=== PATIENT | female | born 1975 | race African-American/Black ===

== ENCOUNTER 2019-07-04 22:12 | Observation (INO) ==
[2019-07-04] MEDS ORDERED: NITROGLYCERIN SL 0.4 MG TABLET SL PRN (22:39)
[2019-07-04] MEDS ORDERED: ASPIRIN 325 MG TABLET PO STA (22:39)
[2019-07-04 22:56] LABS: Basophils % 0.4 % (0.0-0.8); Eosinophils % 0.8 % (0.00-10.9); Hematocrit 39.8 VOL% (35.7-47.0); Hemoglobin 12.3 GM/DL (12.0-16.0); Immature Granulocytes % 0.8 %; Immature Granulocytes Absolute 0.04 #; Lymphocytes # 1.4 10*3/uL (1.4-4.0); Lymphocytes % 27.3 % (21.3-54.2); Mean Corpuscular HGB Conc 30.9 GM/DL (32-36); Mean Corpuscular Volume 83.8 FL (87-102); Mean Platelet Volume 11.3 FL (9.6-12.0); Monocytes % 7.2 % (1.7-12.7); Neutrophils % 63.5 % (38.7-73.9); Platelet Count 152 T/CUMM (130-400); Red Blood Count 4.75 MC/CUMM (3.8-5.5); Red Cell Distribution Width 16.9 % (9.3-17.3); White Blood Count 5.2 T/CUMM (4-12)
[2019-07-04 23:03] LABS: INR 0.9; PT Patient Result 10.3 SECS (9.6-12.2); Partial Thromboplastin Time < 21.0 SECS (20.8-36.0)
[2019-07-04 23:08] LABS: Alanine Aminotransferase 18 U/L (13-56); Albumin 3.7 G/DL (3.4-5.0); Alkaline Phosphatase 53 U/L (45-117); Aspartate Amino Transferase 19 U/L (0-37); Bilirubin,Total < 0.39 MG/DL (0.2-1.0); Blood Urea Nitrogen 9 MG/DL (7-18); Calcium 8.3 MG/DL (8.5-10.1); Estimated Glom Filtration Rate 95 ML/MIN; Glucose 101 MG/DL (74-106); Osmolality,Calculated 275.5 MOS/KG (273-304); Total Protein 8.3 G/DL (6.4-8.3)
[2019-07-04] MEDS ORDERED: ENOXAPARIN 30 MG/0.3 ML SYRINGE SUBCUT STA (23:34)
[2019-07-05] MEDS ORDERED: ENOXAPARIN 100 MG/ML SYRINGE SUBCUT ONE (00:17)
[2019-07-05] MEDS ORDERED: MAGNESIUM SULF RIDER 4 GM in PREMIX 1 EACH IV PRN (03:15)
[2019-07-05] MEDS ORDERED: ACETAMINOPHEN 325 MG TABLET PO PRN (03:15)
[2019-07-05] MEDS ORDERED: DOCUSATE SODIUM 100 MG CAPSULE PO PRN (03:15)
[2019-07-05] MEDS ORDERED: MORPHINE 4 MG/1 ML VIAL IV PRN (03:15)
[2019-07-05] MEDS ORDERED: MAGNESIUM SULF RIDER 2 GM in PREMIX 1 EACH IV PRN (03:15)
[2019-07-05] MEDS ORDERED: hydrALAZINE 20 MG/1 ML VIAL IV PRN (03:15)
[2019-07-05] MEDS ORDERED: ONDANSETRON 4 MG/2 ML VIAL IV PRN (03:15)
[2019-07-05 03:31] LABS: Apearance,Urine CLEAR (Clear); Bilirubin,Urine Negative (Negative); Blood, Urine Negative (Negative); Glucose,Urine (UA) Negative (Negative); Ketones,Urine Negative (Negative); Mucus,Urine Occasional /LPF (Occasional); Nitrite,Urine Negative (Negative); Protein,Urine Negative; RBC,Urine 1 /HPF (0-4); Squamous Epithelial Cell,Urine Occasional /HPF (0-10); Urine Color Yellow (Yellow); Urine Specific Gravity 1.059 (1.001-1.035); Urine Urobilinogen < 2.0 EU/DL (0.2-1.0)
[2019-07-05 05:03] LABS: Barbiturates Screen,Urine Negative (Negative); Benzodiazepines Screen,Urine Negative (Negative); Cannabinoid Screen,Urine Negative (Negative); Opiate Screen,Urine Negative (Negative); Phencyclidine Screen,Urine Negative (Negative)
[2019-07-05 08:32] LABS: Basophils % 0.3 % (0.0-0.8); Eosinophils # 0.1 10*3/uL (0.0-0.87); Eosinophils % 1.2 % (0.00-10.9); Hematocrit 36.2 VOL% (35.7-47.0); Hemoglobin 11.4 GM/DL (12.0-16.0); Immature Granulocytes % 0.5 %; Immature Granulocytes Absolute 0.03 #; Lymphocytes # 1.4 10*3/uL (1.4-4.0); Lymphocytes % 23.2 % (21.3-54.2); Mean Corpuscular HGB Conc 31.5 GM/DL (32-36); Mean Corpuscular Volume 81.5 FL (87-102); Mean Platelet Volume 11.9 FL (9.6-12.0); Monocytes % 7.5 % (1.7-12.7); Neutrophils % 67.3 % (38.7-73.9); Platelet Count 150 T/CUMM (130-400); Red Blood Count 4.44 MC/CUMM (3.8-5.5); Red Cell Distribution Width 16.9 % (9.3-17.3); White Blood Count 5.9 T/CUMM (4-12)
[2019-07-05] MEDS: LISINOPRIL/HCTZ 20-25 MG TABLET PO SCH (08:37)
[2019-07-05 08:48] LABS: Calcium 8.5 MG/DL (8.5-10.1); Osmolality,Calculated 271.8 MOS/KG (273-304)
[2019-07-05] MEDS ORDERED: WARFARIN 7.5 MG TABLET PO ONE (10:00)
[2019-07-05] MEDS: ENOXAPARIN 120 MG/0.8 ML SYRINGE SUBCUT SCH ×2 (10:06→22:00)
[2019-07-06 04:03] LABS: Basophils % 0.6 % (0.0-0.8); Eosinophils # 0.1 10*3/uL (0.0-0.87); Eosinophils % 3.3 % (0.00-10.9); Hematocrit 35.6 VOL% (35.7-47.0); Immature Granulocytes % 0.6 %; Immature Granulocytes Absolute 0.02 #; Lymphocytes # 1.5 10*3/uL (1.4-4.0); Lymphocytes % 44.1 % (21.3-54.2); Mean Corpuscular HGB Conc 30.9 GM/DL (32-36); Mean Corpuscular Volume 83.4 FL (87-102); Mean Platelet Volume 10.9 FL (9.6-12.0); Monocytes % 8.8 % (1.7-12.7); Neutrophils % 42.6 % (38.7-73.9); Platelet Count 123 T/CUMM (130-400); Red Blood Count 4.27 MC/CUMM (3.8-5.5); Red Cell Distribution Width 16.8 % (9.3-17.3); White Blood Count 3.3 T/CUMM (4-12)
[2019-07-06 04:21] LABS: Osmolality,Calculated 275.5 MOS/KG (273-304)
[2019-07-06] MEDS: LISINOPRIL/HCTZ 20-25 MG TABLET PO SCH (08:14)
[2019-07-06] MEDS: POTASSIUM CHLORIDE 20 MEQ TABLET PO PRN ×3 (09:24→13:38)
[2019-07-06] MEDS: ENOXAPARIN 120 MG/0.8 ML SYRINGE SUBCUT SCH ×2 (11:26→22:00)
[2019-07-06] MEDS ORDERED: WARFARIN 5 MG TABLET PO SCH (18:00)
[2019-07-07 04:18] LABS: Basophils % 0.6 % (0.0-0.8); Eosinophils # 0.1 10*3/uL (0.0-0.87); Eosinophils % 3.5 % (0.00-10.9); Hemoglobin 11.5 GM/DL (12.0-16.0); Immature Granulocytes % 0.6 %; Immature Granulocytes Absolute 0.02 #; Lymphocytes # 1.3 10*3/uL (1.4-4.0); Lymphocytes % 37.2 % (21.3-54.2); Mean Corpuscular HGB Conc 31.1 GM/DL (32-36); Mean Corpuscular Volume 82.8 FL (87-102); Mean Platelet Volume 11.8 FL (9.6-12.0); Monocytes % 10.7 % (1.7-12.7); Neutrophils % 47.4 % (38.7-73.9); Platelet Count 133 T/CUMM (130-400); Red Blood Count 4.47 MC/CUMM (3.8-5.5); Red Cell Distribution Width 16.6 % (9.3-17.3); White Blood Count 3.5 T/CUMM (4-12)
[2019-07-07 04:32] LABS: PT Patient Result 10.5 SECS (9.6-12.2); Partial Thromboplastin Time 29.4 SECS (20.8-36.0)
[2019-07-07 04:37] LABS: Calcium 8.7 MG/DL (8.5-10.1); Osmolality,Calculated 276.5 MOS/KG (273-304)
[2019-07-07] MEDS: POTASSIUM CHLORIDE 20 MEQ TABLET PO PRN (09:16)
[2019-07-07] MEDS: LISINOPRIL/HCTZ 20-25 MG TABLET PO SCH (09:16)
[2019-07-07] MEDS: ENOXAPARIN 120 MG/0.8 ML SYRINGE SUBCUT SCH (11:53)
[2019-07-07 16:01] VITALS: BP 130/93
== END 2019-07-07 16:40 | disposition home or self-care (01) ==
LOC: N.ED 22:12 → N.EDINP 22:12 → EDBD 22:12 → SUATTDRO 07-05 01:28 → N.TELES 07-05 02:34
PROVIDERS: ADMIT Family Medicine; ATTEND Internal Medicine

== ENCOUNTER 2020-02-25 21:45 | Observation (INO) ==
[2020-02-25] MEDS ORDERED: NITROGLYCERIN 2% OINT 1 INCH/GM PACK TOP STA (22:39)
[2020-02-25] MEDS ORDERED: MORPHINE 4 MG/1 ML VIAL IV STA (22:39)
[2020-02-25] MEDS ORDERED: ONDANSETRON 4 MG/2 ML VIAL IV STA (22:39)
[2020-02-25] MEDS ORDERED: ASPIRIN 325 MG TABLET PO STA (22:39)
[2020-02-25 22:44] LABS: Basophils % 0.5 % (0.0-0.8); Eosinophils # 0.1 10*3/uL (0.0-0.87); Eosinophils % 1.1 % (0.00-10.9); Hematocrit 29.1 VOL% (35.7-47.0); Hemoglobin 8.8 GM/DL (12.0-16.0); Immature Granulocytes % 0.5 %; Immature Granulocytes Absolute 0.02 #; Lymphocytes # 1.2 10*3/uL (1.4-4.0); Lymphocytes % 26.1 % (21.3-54.2); Mean Corpuscular HGB Conc 30.2 GM/DL (32-36); Mean Platelet Volume 10.5 FL (9.6-12.0); Monocytes % 11.3 % (1.7-12.7); Neutrophils % 60.5 % (38.7-73.9); Platelet Count 194 T/CUMM (130-400); Red Blood Count 3.78 MC/CUMM (3.8-5.5); Red Cell Distribution Width 18.9 % (9.3-17.3); White Blood Count 4.4 T/CUMM (4-12)
[2020-02-25 22:52] LABS: PT Patient Result 10.5 SECS (9.8-11.9)
[2020-02-25 23:06] LABS: Alanine Aminotransferase 13 U/L (13-56); Albumin 3.6 G/DL (3.4-5.0); Alkaline Phosphatase 78 U/L (45-117); Aspartate Amino Transferase 18 U/L (0-37); Bilirubin,Total < 0.39 MG/DL (0.2-1.0); Blood Urea Nitrogen 10 MG/DL (7-18); Calcium 8.9 MG/DL (8.5-10.1); Estimated Glom Filtration Rate 126 ML/MIN; Glucose 104 MG/DL (74-106); Osmolality,Calculated 277.4 MOS/KG (273-304); Total Protein 8.4 G/DL (6.4-8.3)
[2020-02-26] MEDS ORDERED: PIPERACILLIN/TAZOBACTAM 3,375 MG in SODIUM CHLORIDE 0.9% 100 ML IV STA (00:35)
[2020-02-26 02:34] VITALS: BP 148/64
[2020-02-26] MEDS ORDERED: APIXABAN 5 MG TABLET PO SCH (09:00)
== END 2020-02-26 03:55 | disposition home or self-care (01) ==
LOC: N.EDINP 21:45 → N.ED 21:45 → N.EDINP 02-26 03:54
PROVIDERS: ADMIT Family Medicine; ATTEND Family Medicine

== ENCOUNTER 2021-06-13 09:31 | Inpatient (IN) ==
[2021-06-13] MEDS ORDERED: MORPHINE 2 MG/1 ML SYRINGE IV STA (11:37)
[2021-06-13] MEDS ORDERED: ONDANSETRON 4 MG/2 ML VIAL IV STA (11:38)
[2021-06-13 12:05] LABS: PT Patient Result 11.7 SECS (10.5-12.0); Partial Thromboplastin Time 25.2 SECS (23.8-32.1)
[2021-06-13 12:07] LABS: Basophils % 0.4 % (0.0-0.8); Eosinophils # 0.1 10*3/uL (0.0-0.87); Eosinophils % 0.7 % (0.00-10.9); Hematocrit 27.7 VOL% (35.7-47.0); Hemoglobin 7.3 GM/DL (12.0-16.0); Immature Granulocytes % 2.5 %; Immature Granulocytes Absolute 0.21 #; Lymphocytes # 0.8 10*3/uL (1.4-4.0); Lymphocytes % 9.8 % (21.3-54.2); Mean Corpuscular HGB Conc 26.4 GM/DL (32-36); Mean Corpuscular Volume 67.4 FL (87-102); Monocytes % 10.5 % (1.7-12.7); NRBC # 0.04 10*3/uL; Neutrophils % 76.1 % (38.7-73.9); Platelet Count 233 T/CUMM (130-400); Red Blood Count 4.11 MC/CUMM (3.8-5.5); Red Cell Distribution Width 23.1 % (9.3-17.3); White Blood Count 8.4 T/CUMM (4-12)
[2021-06-13 12:25] LABS: Albumin 2.9 G/DL (3.4-5.0); Bilirubin,Total 0.4 MG/DL (0.20-1.00); Calcium 8.9 MG/DL (8.5-10.1); Osmolality,Calculated 266.2 MOS/KG (273-304); Potassium 3.7 MMOL/L (3.5-5.1); Total Protein 8.9 G/DL (6.4-8.2)
[2021-06-13] MEDS ORDERED: hydrALAZINE 20 MG/1 ML VIAL IV PRN (16:03)
[2021-06-13] MEDS ORDERED: GLUCAGON 1 MG VIAL IM PRN (16:03)
[2021-06-13] MEDS ORDERED: ONDANSETRON 4 MG/2 ML VIAL IV PRN (16:03)
[2021-06-13] MEDS ORDERED: DEXTROSE 10% 25 GM/250 ML BAG IV PRN (16:03)
[2021-06-13] MEDS: INSULIN LISPRO 100 UNIT/ML SUBCUT SCH ×2 (16:53→22:24)
[2021-06-13] MEDS: HEPARIN DRIP 25,000 UNITS/500 ML PREMIX IV SCH (17:09)
[2021-06-13] MEDS ORDERED: INFLUENZA VIRUS VACCINE 0.5 ML SYRINGE IM ONE (22:28)
[2021-06-13] MEDS: ACETAMINOPHEN 325 MG TABLET PO PRN (22:52)
[2021-06-13 23:32] LABS: Basophils % 0.2 % (0.0-0.8); Eosinophils % 0.3 % (0.00-10.9); Immature Granulocytes % 2.6 %; Immature Granulocytes Absolute 0.31 #; Lymphocytes # 2.2 10*3/uL (1.4-4.0); Mean Corpuscular HGB Conc 25.6 GM/DL (32-36); Mean Corpuscular Volume 68.9 FL (87-102); Monocytes % 11.3 % (1.7-12.7); NRBC # 0.07 10*3/uL; Neutrophils % 66.6 % (38.7-73.9); Platelet Count 261 T/CUMM (130-400); Red Blood Count 3.51 MC/CUMM (3.8-5.5); Red Cell Distribution Width 23.2 % (9.3-17.3); White Blood Count 11.8 T/CUMM (4-12)
[2021-06-13 23:53] LABS: Hematocrit 24.2 VOL% (35.7-47.0); Hemoglobin 6.2 GM/DL (12.0-16.0)
[2021-06-13 23:57] LABS: Folate 15.96 NG/ML (5.38-24.0); Vitamin B12 232 PG/ML (211-911)
[2021-06-14 00:02] LABS: Lymphocytes 13 % (20-55); Platelet Estimate Adequate; Segmented Neutrophils 79 % (50-85); Total Cells Counted 100
[2021-06-14 00:03] LABS: Hypochromia 1+; Microcytosis 1+; Polychromasia 1+; Stomatocytes 1+
[2021-06-14 00:04] LABS: Target Cells 1+
[2021-06-14] MEDS ORDERED: SODIUM CHLORIDE 0.9% 1,000 ML IV PRN ×3 (00:16→09:25)
[2021-06-14 01:11] LABS: Sedimentation Rate-Westergren 88 MM/HR (0-20)
[2021-06-14] MEDS: cefTRIAXone 1,000 MG in SODIUM CHLORIDE 0.9% 100 ML IV SCH ×2 (01:16→23:55)
[2021-06-14] MEDS: AZITHROMYCIN INJ 500 MG in SODIUM CHLORIDE 0.9% 250 ML IV SCH (01:49)
[2021-06-14] MEDS: ACETAMINOPHEN 325 MG TABLET PO PRN ×4 (05:22→22:27)
[2021-06-14] MEDS: HEPARIN DRIP 25,000 UNITS/500 ML PREMIX IV SCH ×2 (05:26→15:30)
[2021-06-14] MEDS: INSULIN LISPRO 100 UNIT/ML SUBCUT SCH ×4 (07:30→21:34)
[2021-06-14 08:21] LABS: Albumin 2.5 G/DL (3.4-5.0); Bilirubin,Total 0.7 MG/DL (0.20-1.00); Calcium 8.6 MG/DL (8.5-10.1); Osmolality,Calculated 267.2 MOS/KG (273-304); Potassium 3.4 MMOL/L (3.5-5.1); Total Protein 7.9 G/DL (6.4-8.2)
[2021-06-14 08:35] LABS: Random Urine Protein (Bench) 50 MG/DL (<11.9); Total Protein (Chem) 8.9 G/DL (6.4-8.3)
[2021-06-14 08:44] LABS: Basophils % 0.2 % (0.0-0.8); Eosinophils % 0.4 % (0.00-10.9); Hematocrit 23.2 VOL% (35.7-47.0); Immature Granulocytes % 2.3 %; Immature Granulocytes Absolute 0.23 #; Lymphocytes % 19.9 % (21.3-54.2); Mean Corpuscular HGB Conc 27.2 GM/DL (32-36); Monocytes % 12.2 % (1.7-12.7); NRBC # 0.07 10*3/uL; Platelet Count 250 T/CUMM (130-400); Red Blood Count 3.41 MC/CUMM (3.8-5.5); Red Cell Distribution Width 23.4 % (9.3-17.3)
[2021-06-14 08:47] LABS: Hemoglobin 6.3 GM/DL (12.0-16.0)
[2021-06-14 08:50] LABS: Band Neutrophils 2 % (0-10); Hypochromia 1+; Lymphocytes 15 % (20-55); Nucleated Red Blood Cells 1 (0-5); Segmented Neutrophils 68 % (50-85); Total Cells Counted 100
[2021-06-14 08:51] LABS: Microcytosis 1+; Ovalocytes Slight; Tear Drop Cells Slight
[2021-06-14 08:54] LABS: Platelet Estimate Normal
[2021-06-14 10:39] LABS: Albumin (SPE) 4.1 G/DL (3.2-5.3); Albumin (SPE) Rel % 45.9 %; Alpha 1 (SPE) 0.5 G/DL (0.1-0.4); Alpha 1 (SPE) Rel % 5.7 %; Alpha 2 (SPE) 1.1 G/DL (0.4-1.0); Alpha 2 (SPE) Rel % 12.2 %; Beta (SPE) 1.1 G/DL (0.5-1.1); Beta (SPE) Rel % 12.6 %; Gamma (SPE) 2.1 G/DL (0.7-1.7); Gamma (SPE) Rel % 23.6 %
[2021-06-14 10:56] LABS: Hemoglobin A1 (Alkaline) 69.4 % (96.5-98.5); Hemoglobin A2 (Alkaline) 1.9 % (1.5-3.5)
[2021-06-14 10:57] LABS: Hemoglobin S (Alkaline) 28.7 %
[2021-06-15] MEDS: AZITHROMYCIN INJ 500 MG in SODIUM CHLORIDE 0.9% 250 ML IV SCH ×2 (00:39→23:01)
[2021-06-15] MEDS: HEPARIN DRIP 25,000 UNITS/500 ML PREMIX IV SCH ×3 (00:46→17:21)
[2021-06-15 01:08] LABS: Hematocrit 28.3 VOL% (35.7-47.0)
[2021-06-15 06:04] LABS: Calcium 8.4 MG/DL (8.5-10.1); Osmolality,Calculated 261.5 MOS/KG (273-304); Potassium 3.3 MMOL/L (3.5-5.1)
[2021-06-15 06:37] LABS: Basophils # 0.1 10*3/uL (0.0-0.2); Basophils % 0.5 % (0.0-0.8); Eosinophils # 0.1 10*3/uL (0.0-0.87); Eosinophils % 0.9 % (0.00-10.9); Hematocrit 27.4 VOL% (35.7-47.0); Hemoglobin 7.8 GM/DL (12.0-16.0); Immature Granulocytes % 2.2 %; Immature Granulocytes Absolute 0.25 #; Lymphocytes # 2.4 10*3/uL (1.4-4.0); Lymphocytes % 21.2 % (21.3-54.2); Mean Corpuscular HGB Conc 28.5 GM/DL (32-36); Monocytes % 9.3 % (1.7-12.7); NRBC # 0.05 10*3/uL; Neutrophils % 65.9 % (38.7-73.9); Platelet Count 269 T/CUMM (130-400); Red Blood Count 3.86 MC/CUMM (3.8-5.5); Red Cell Distribution Width 25.7 % (9.3-17.3); White Blood Count 11.3 T/CUMM (4-12)
[2021-06-15 06:52] LABS: Band Neutrophils 3 % (0-10); Eosinophils 2 % (0-10); Hypochromia 2+; Lymphocytes 19 % (20-55); Metamyelocytes 1 %; Microcytosis 1+; Ovalocytes Slight; Segmented Neutrophils 67 % (50-85); Total Cells Counted 100
[2021-06-15 06:53] LABS: Anisocytosis 1+; Platelet Estimate Normal
[2021-06-15] MEDS: INSULIN LISPRO 100 UNIT/ML SUBCUT SCH ×4 (07:40→21:30)
[2021-06-15 08:35] LABS: % Iron Saturation 5.6 % (18-50)
[2021-06-15] MEDS ORDERED: IRON SUCROSE IV ONE (09:20)
[2021-06-15] MEDS ORDERED: SODIUM CHLORIDE 0.9% IV ONE (09:20)
[2021-06-15] MEDS: POTASSIUM CHLORIDE 20 MEQ TABLET PO SCH (09:29)
[2021-06-15 09:47] LABS: Folate > 24.00 NG/ML (5.38-24.0)
[2021-06-15 09:49] LABS: Vitamin B12 213 PG/ML (211-911)
[2021-06-15] MEDS: CYANOCOBALAMIN 1000 MCG/1 ML VIAL SUBCUT SCH (10:18)
[2021-06-15] MEDS: FERRIC GLUCONATE COMPLEX 125 MG in SODIUM CHLORIDE 0.9% 100 ML IV SCH (12:50)
[2021-06-15] MEDS: cefTRIAXone 1,000 MG in SODIUM CHLORIDE 0.9% 100 ML IV SCH (22:01)
[2021-06-16 06:31] LABS: Calcium 8.3 MG/DL (8.5-10.1); Osmolality,Calculated 264.2 MOS/KG (273-304); Potassium 3.6 MMOL/L (3.5-5.1)
[2021-06-16 07:01] LABS: Basophils % 0.2 % (0.0-0.8); Eosinophils # 0.1 10*3/uL (0.0-0.87); Eosinophils % 1.1 % (0.00-10.9); Hematocrit 27.3 VOL% (35.7-47.0); Hemoglobin 7.8 GM/DL (12.0-16.0); Immature Granulocytes % 2.9 %; Immature Granulocytes Absolute 0.26 #; Lymphocytes # 1.7 10*3/uL (1.4-4.0); Lymphocytes % 19.4 % (21.3-54.2); Mean Corpuscular HGB Conc 28.6 GM/DL (32-36); Mean Corpuscular Volume 70.7 FL (87-102); Monocytes % 10.4 % (1.7-12.7); NRBC # 0.04 10*3/uL; Platelet Count 321 T/CUMM (130-400); Red Blood Count 3.86 MC/CUMM (3.8-5.5); Red Cell Distribution Width 26.2 % (9.3-17.3); White Blood Count 8.8 T/CUMM (4-12)
[2021-06-16 07:24] LABS: Hypochromia 1+; Lymphocytes 12 % (20-55); Microcytosis 1+; Nucleated Red Blood Cells 2 (0-5); Platelet Estimate Adequate; Segmented Neutrophils 82 % (50-85); Total Cells Counted 100
[2021-06-16] MEDS: INSULIN LISPRO 100 UNIT/ML SUBCUT SCH ×4 (09:34→21:11)
[2021-06-16] MEDS: POTASSIUM CHLORIDE 20 MEQ TABLET PO SCH (09:49)
[2021-06-16] MEDS: CYANOCOBALAMIN 1000 MCG/1 ML VIAL SUBCUT SCH (09:49)
[2021-06-16] MEDS: FERRIC GLUCONATE COMPLEX 125 MG in SODIUM CHLORIDE 0.9% 100 ML IV SCH (09:49)
[2021-06-16] MEDS ORDERED: DIAZEPAM 5 MG TABLET PO ONE (13:59)
[2021-06-16] MEDS: HEPARIN DRIP 25,000 UNITS/500 ML PREMIX IV SCH ×2 (14:29→16:13)
[2021-06-16 14:41] LABS: PT Patient Result 11.4 SECS (10.5-12.0)
[2021-06-16 14:51] LABS: Basophils % 0.2 % (0.0-0.8); Eosinophils # 0.1 10*3/uL (0.0-0.87); Eosinophils % 1.4 % (0.00-10.9); Hematocrit 29.5 VOL% (35.7-47.0); Hemoglobin 8.2 GM/DL (12.0-16.0); Immature Granulocytes % 2.6 %; Immature Granulocytes Absolute 0.24 #; Lymphocytes # 2.1 10*3/uL (1.4-4.0); Lymphocytes % 22.7 % (21.3-54.2); Mean Corpuscular HGB Conc 27.8 GM/DL (32-36); Mean Corpuscular Volume 71.3 FL (87-102); Mean Platelet Volume 10.9 FL (9.6-12.0); Monocytes % 9.6 % (1.7-12.7); NRBC # 0.05 10*3/uL; Neutrophils % 63.5 % (38.7-73.9); Platelet Count 372 T/CUMM (130-400); Red Blood Count 4.14 MC/CUMM (3.8-5.5); Red Cell Distribution Width 26.1 % (9.3-17.3); White Blood Count 9.1 T/CUMM (4-12)
[2021-06-16 15:04] LABS: Lymphocytes 22 % (20-55); Segmented Neutrophils 68 % (50-85); Total Cells Counted 100
[2021-06-16 15:05] LABS: Hypochromia Slight; Microcytosis Slight; Ovalocytes Slight
[2021-06-16 15:06] LABS: Platelet Estimate Normal; Polychromasia Few
[2021-06-16] MEDS: SODIUM CHLORIDE 0.45% 1,000 ML IV SCH ×2 (18:55→18:56)
[2021-06-16] MEDS: cefTRIAXone 1,000 MG in SODIUM CHLORIDE 0.9% 100 ML IV SCH (23:43)
[2021-06-16] MEDS: AZITHROMYCIN INJ 500 MG in SODIUM CHLORIDE 0.9% 250 ML IV SCH (23:43)
[2021-06-17 06:30] LABS: Basophils % 0.5 % (0.0-0.8); Eosinophils # 0.2 10*3/uL (0.0-0.87); Eosinophils % 2.1 % (0.00-10.9); Hemoglobin 7.6 GM/DL (12.0-16.0); Immature Granulocytes % 3.9 %; Lymphocytes # 1.8 10*3/uL (1.4-4.0); Lymphocytes % 23.2 % (21.3-54.2); Mean Corpuscular HGB Conc 27.8 GM/DL (32-36); Mean Platelet Volume 10.7 FL (9.6-12.0); Monocytes % 10.8 % (1.7-12.7); NRBC # 0.03 10*3/uL; Neutrophils % 59.5 % (38.7-73.9); Platelet Count 361 T/CUMM (130-400); Red Blood Count 3.79 MC/CUMM (3.8-5.5); Red Cell Distribution Width 26.5 % (9.3-17.3); White Blood Count 7.7 T/CUMM (4-12)
[2021-06-17 06:33] LABS: Hematocrit 27.3 VOL% (35.7-47.0)
[2021-06-17 06:35] LABS: Hypochromia 1+; Lymphocytes 22 % (20-55); Microcytosis 1+; Ovalocytes Slight; Platelet Estimate Adequate; Segmented Neutrophils 72 % (50-85); Total Cells Counted 100
[2021-06-17] MEDS: POTASSIUM CHLORIDE 20 MEQ TABLET PO SCH (08:58)
[2021-06-17] MEDS: CYANOCOBALAMIN 1000 MCG/1 ML VIAL SUBCUT SCH (08:58)
[2021-06-17] MEDS: FERRIC GLUCONATE COMPLEX 125 MG in SODIUM CHLORIDE 0.9% 100 ML IV SCH (10:19)
[2021-06-17] MEDS: INSULIN LISPRO 100 UNIT/ML SUBCUT SCH ×4 (10:20→23:39)
[2021-06-17] MEDS: HEPARIN DRIP 25,000 UNITS/500 ML PREMIX IV SCH (17:13)
[2021-06-17] MEDS: cefTRIAXone 1,000 MG in SODIUM CHLORIDE 0.9% 100 ML IV SCH (23:35)
[2021-06-18] MEDS: AZITHROMYCIN INJ 500 MG in SODIUM CHLORIDE 0.9% 250 ML IV SCH ×2 (00:20→23:42)
[2021-06-18] MEDS: HEPARIN DRIP 25,000 UNITS/500 ML PREMIX IV SCH ×3 (04:30→15:31)
[2021-06-18] MEDS: SODIUM CHLORIDE 0.45% 1,000 ML IV SCH ×2 (07:42)
[2021-06-18] MEDS: INSULIN LISPRO 100 UNIT/ML SUBCUT SCH ×4 (07:43→21:12)
[2021-06-18] MEDS: POTASSIUM CHLORIDE 20 MEQ TABLET PO SCH (08:27)
[2021-06-18] MEDS: CYANOCOBALAMIN 1000 MCG/1 ML VIAL SUBCUT SCH (08:28)
[2021-06-18] MEDS: FERRIC GLUCONATE COMPLEX 125 MG in SODIUM CHLORIDE 0.9% 100 ML IV SCH (10:09)
[2021-06-18] MEDS: cefTRIAXone 1,000 MG in SODIUM CHLORIDE 0.9% 100 ML IV SCH (22:56)
[2021-06-19] MEDS: HEPARIN DRIP 25,000 UNITS/500 ML PREMIX IV SCH (01:29)
[2021-06-19] MEDS: ACETAMINOPHEN 325 MG TABLET PO PRN (05:22)
[2021-06-19] MEDS ORDERED: APIXABAN 5 MG TABLET PO SCH (09:00)
[2021-06-19] MEDS: FERRIC GLUCONATE COMPLEX 125 MG in SODIUM CHLORIDE 0.9% 100 ML IV SCH (09:17)
[2021-06-19] MEDS: POTASSIUM CHLORIDE 20 MEQ TABLET PO SCH (09:17)
[2021-06-19 11:55] VITALS: BP 148/101
[2021-06-19] MEDS: INSULIN LISPRO 100 UNIT/ML SUBCUT SCH (12:50)
== END 2021-06-19 14:30 | disposition home or self-care (01) | DRG 300 ==
LOC: SUATTDRO → N.ED 09:31 → N.3E 16:40 → SUATTDRO 16:40 → N.3E 21:58
PROVIDERS: ADMIT Internal Medicine; ATTEND Internal Medicine